=== PATIENT | female | born 1975 | race Caucasian/White ===

== ENCOUNTER 2017-08-05 11:30 | Emergency (ER) | payer OTHER ==
[2017-08-05 11:54] VITALS: BP 113/67
--- NOTE | 2017-08-05 13:11 | UC ---
Throat Pain/Nasal Charbel HPI - HPI Summary HPI Summary: 41 yo female with sore throat x 7-10 days waxes and wanes no f/c no vines or myalgias hurts to swallow no n/v/d - History of Current Complaint Chief Complaint: UCGeneralIllness Stated Complaint: SORE THROAT Time Seen by Provider: 08/05/17 12:32 Hx Obtained From: Patient Hx Last Menstrual Period: 07/17/17 Onset/Duration: Gradual Onset, Lasting Days Severity: Moderate Pain Intensity: 4 Pain Scale Used: 0-10 Numeric Cough: Nonproductive Associated Signs & Symptoms: Positive: Negative Related History: Prior ENT Surgery, T & A - Allergies/Home Medications Allergies/Adverse Reactions: Allergies Allergy/AdvReac Type Severity Reaction Status Date / Time No Known Allergies Allergy Verified 08/05/17 11:50 PMH/Surg Hx/FS Hx/Imm Hx Previously Healthy: Yes - Surgical History Surgical History: Yes Surgery Procedure, Year, and Place: knee surgery, csection - Social History Alcohol Use: Occasionally Substance Use Type: None Smoking Status (MU): Never Smoked Tobacco Review of Systems Constitutional: Fatigue Skin: Negative Eyes: Negative ENT: Sore Throat Respiratory: Negative Cardiovascular: Negative Gastrointestinal: Negative Genitourinary: Negative Motor: Negative Neurovascular: Negative Musculoskeletal: Negative Neurological: Negative Psychological: Negative Is Patient Immunocompromised?: No All Other Systems Reviewed And Are Negative: Yes Physical Exam Triage Information Reviewed: Yes Appearance: Well-Appearing, No Pain Distress, Well-Nourished Vital Signs: Initial Vital Signs Temp 98.1 F 08/05/17 11:44 Pulse 72 08/05/17 11:44 Resp 17 08/05/17 11:44 BP 113/67 08/05/17 11:44 Pulse Ox 100 08/05/17 11:44 Eyes: Positive: Conjunctiva Clear ENT: Positive: Hearing grossly normal, Pharyngeal erythema, Uvula midline. Negative: Nasal congestion, Nasal drainage, Tonsillar swelling, Tonsillar exudate, Trismus, Muffled voice, Hoarse voice, Dental tenderness, Sinus tenderness Neck: Positive: Supple, Nontender, Enlarged Nodes @ - ant cervical Respiratory: Positive: Lungs clear, Normal breath sounds, No respiratory distress, No accessory muscle use Cardiovascular: Positive: RRR, No Murmur Musculoskeletal: Positive: ROM Intact, No Edema Neurological: Positive: Alert Psychological Exam: Normal Skin Exam: Normal Throat Pain/Nasal Course/Dx - Course Course Of Treatment: strep (-) - Differential Dx/Diagnosis Provider Diagnoses: acute pharyngitis Discharge - Discharge Plan Condition: Stable Disposition: HOME Prescriptions: Cephalexin CAP* [Keflex CAP*] 500 mg PO BID #20 cap Patient Education Materials: Pharyngitis (ED) Referrals: Zoë Chowdhury MD [Primary Care Provider] - Additional Instructions: recheck in 3-4 days if not better
== END 2017-08-05 13:04 | disposition home or self-care (01) ==
LOC: UCEAST 11:30
DX: J02.9 Acute pharyngitis, unspecified (principal); R53.83 Other fatigue
CPT/HCPCS: 87651; 99202; G0463

== ENCOUNTER 2018-08-23 19:23 | Emergency (ER) | payer OTHER ==
[2018-08-23 19:38] VITALS: BP 119/70
--- NOTE | 2018-08-23 19:54 | UC ---
Complaint Female HPI - HPI Summary HPI Summary: 42 yo female presents with urinary burning, pressure, and frequency since yesterday. She tells me that she has had UTIs in the past and this feels the same. She took cytotex OTC and her symptoms improved for a short time. She denies flank pain, vaginal discharge, hematuria, n/v, or fever. - History Of Current Complaint Chief Complaint: UCGU Stated Complaint: BURNING URINATION Time Seen by Provider: 08/23/18 19:47 Hx Obtained From: Patient Hx Last Menstrual Period: 08/05/18 Onset/Duration: Sudden Onset Timing: Constant Severity Initially: Mild Severity Currently: Mild Pain Intensity: 4 Pain Scale Used: 0-10 Numeric - Allergies/Home Medications Allergies/Adverse Reactions: Allergies Allergy/AdvReac Type Severity Reaction Status Date / Time nut - unspecified Allergy Severe HIVES, Verified 08/23/18 19:38 THROAT TIGHTNESS/SWELLING, GI ISSUES Home Medications: Home Medications Methenamine/Sodium Salicylate [Cystex] 1 tab PO PRN 08/23/18 [History] Vitamins* 1 tab PO DAILY 08/23/18 [History Confirmed 08/23/18] PMH/Surg Hx/FS Hx/Imm Hx - Additional Past Medical History Additional PMH: None - Surgical History Surgical History: Yes Surgery Procedure, Year, and Place: knee surgery, csection, TONSILLECTOMY - Family History Known Family History: Positive: None - Social History Occupation: Employed Full-time Lives: With Family Alcohol Use: Occasionally Substance Use Type: None Smoking Status (MU): Never Smoked Tobacco Review of Systems All Other Systems Reviewed And Are Negative: Yes Constitutional: Positive: Negative Skin: Positive: Negative Respiratory: Positive: Negative Cardiovascular: Positive: Negative Gastrointestinal: Positive: Negative Genitourinary: Positive: Dysuria Neurovascular: Positive: Negative Neurological: Positive: Negative Psychological: Positive: Negative Physical Exam - Summary Physical Exam Summary: GENERAL: NAD. WDWN. No pain distress. SKIN: No rashes, sores, lesions, or open wounds. NECK: Supple. Nontender. No lymphadenopathy. CHEST: CTAB. No r/r/w. No accessory muscle use. Breathing comfortably and in no distress. CV: RRR. Without m/r/g. Pulses intact. Cap refill <2seconds ABDOMEN: Soft. NTTP. No CVA tenderness. Bowel sounds present NEURO: Alert. PSYCH: Age appropriate behavior. Triage Information Reviewed: Yes Vital Signs: Initial Vital Signs Temp 97.7 F 08/23/18 19:32 Pulse 70 08/23/18 19:32 Resp 16 08/23/18 19:32 BP 119/70 08/23/18 19:32 Pulse Ox 98 08/23/18 19:32 Vital Signs Reviewed: Yes Complaint Female Dx - Course Course Of Treatment: Unable to perform UA due to OTC medicine. Will treat clinically and send her urine for culture. - Differential Dx/Diagnosis Provider Diagnosis: UTI (urinary tract infection) Discharge - Sign-Out/Discharge Documenting (check all that apply): Patient Departure All imaging exams completed and their final reports reviewed: No Studies - Discharge Plan Condition: Stable Disposition: HOME Prescriptions: Nitrofurantoin Monohyd/M-Cryst [Macrobid 100 mg Capsule] 100 mg PO BID #10 cap Patient Education Materials: Urinary Tract Infection in Women (DC) Referrals: Zoë Chowdhury MD [Primary Care Provider] - Vickie Henderson MD [Medical Doctor] - Charisse Dubois MD [Medical Doctor] - Ifeoma Le MD [Medical Doctor] - [facility] [Outside] - As Soon As Possible Additional Instructions: If you develop a fever, shortness of breath, chest pain, new or worsening symptoms - please call your PCP or go to the ED. - Billing Disposition and Condition Condition: STABLE Disposition: Home - Attestation Statements Provider Attestation: I was available for consult. This patient was seen by the [facility]. The patient was not presented to, seen by, or examined by me. -Kb
== END 2018-08-23 20:10 | disposition home or self-care (01) ==
LOC: UCEAST 19:23
DX: N39.0 Urinary tract infection, site not specified (principal); Z91.018 Allergy to other foods
CPT/HCPCS: 81003; 87077; 87086; 87186; 99212; G0463

== ENCOUNTER 2019-02-01 07:07 | Emergency (ER) | payer OTHER ==
[2019-02-01 07:18] VITALS: BP 126/76
--- NOTE | 2019-02-01 07:19 | UC ---
Skin Complaint HPI - HPI Summary HPI Summary: 43 yo female with skin rash x 4-5 days spreading pruritic on face /neck trunk and extr was at capm over the 4th - History of Current Complaint Chief Complaint: UCRash Stated Complaint: SKIN ISSUE Hx Obtained From: Patient Hx Last Menstrual Period: 2 weeks ago Onset/Duration: Gradual Onset, Lasting Days Onset Severity: Mild Current Severity: Moderate Pain Intensity: 5 - itching Location: Other - face and neck>trunk>extr Character: Pruritus Aggravating Factor(s): Nothing Alleviating Factor(s): Antihistamines Associated Signs & Symptoms: Positive: Rash - Allergy/Home Medications Allergies/Adverse Reactions: Allergies Allergy/AdvReac Type Severity Reaction Status Date / Time nut - unspecified Allergy Severe HIVES, Verified 02/01/19 07:18 THROAT TIGHTNESS/SWELLING, GI ISSUES Home Medications: Home Medications diphenhydrAMINE HCl [Benadryl Allergy] 1 tab PO ONCE PRN 02/01/19 [History Confirmed 02/01/19] PMH/Surg Hx/FS Hx/Imm Hx Previously Healthy: Yes - Surgical History Surgical History: Yes Surgery Procedure, Year, and Place: knee surgery, csection, TONSILLECTOMY - Family History Known Family History: Positive: None - Social History Alcohol Use: Occasionally Substance Use Type: None Smoking Status (MU): Never Smoked Tobacco Review of Systems All Other Systems Reviewed And Are Negative: Yes Constitutional: Positive: Negative Skin: Positive: Rash ENT: Positive: Negative Respiratory: Positive: Negative Cardiovascular: Positive: Negative Gastrointestinal: Positive: Negative Genitourinary: Positive: Negative Motor: Positive: Negative Neurovascular: Positive: Negative Musculoskeletal: Positive: Negative Neurological: Positive: Negative Psychological: Positive: Negative Physical Exam Triage Information Reviewed: Yes Appearance: Well-Appearing, No Pain Distress, Well-Nourished Vital Signs: Initial Vital Signs Temp 99.1 F 02/01/19 07:12 Pulse 72 02/01/19 07:12 Resp 18 02/01/19 07:12 BP 126/76 02/01/19 07:12 Pulse Ox 97 02/01/19 07:12 Vital Signs Reviewed: Yes Eyes: Positive: Conjunctiva Clear ENT: Positive: Hearing grossly normal. Negative: Nasal congestion, Nasal drainage, Trismus, Muffled voice, Hoarse voice Neck: Positive: Supple, Nontender, No Lymphadenopathy Respiratory: Positive: Lungs clear, Normal breath sounds, No respiratory distress Cardiovascular: Positive: RRR, No Murmur Musculoskeletal: Positive: ROM Intact, No Edema Neurological: Positive: Alert Psychological Exam: Normal Skin: Positive: Rashes - c/w contact dermatitis Course/Dx - Diagnoses Provider Diagnosis: Contact dermatitis and eczema due to plant Discharge - Sign-Out/Discharge Documenting (check all that apply): Patient Departure All imaging exams completed and their final reports reviewed: No Studies - Discharge Plan Condition: Stable Disposition: HOME Patient Education Materials: Contact Dermatitis (ED) Referrals: Zoë Chowdhury MD [Primary Care Provider] - If Needed Additional Instructions: you had a steroid shot today (kenalog) you may take oral benadryl for itching - Billing Disposition and Condition Condition: STABLE Disposition: Home
[2019-02-01] MEDS ORDERED: Triamcinolone Acetonide* 40 MG/ML 1 ML VIAL IM ONE (07:27)
== END 2019-02-01 07:52 | disposition home or self-care (01) ==
LOC: UCEAST 07:07
DX: L25.5 Unspecified contact dermatitis due to plants, except food (principal)
CPT/HCPCS: 96372; 99211; G0463; J3301